=== PATIENT | female | born 1980 | race Caucasian/White ===

== ENCOUNTER 2017-04-17 08:20 | Emergency (ER) | payer MEDICAID ==
--- NOTE | 2017-04-17 08:40 | ED Physician Chart ---
Chief Complaint/HPI - Patient Information Date Seen:: 04/17/17 Time Seen:: 08:30 Chief Complaint:: Bilateral leg pain for almost 2 days. History of Present Illness:: Pt has had bilateral diffuse leg pain for almost 2 days. No known injury or trauma. No weakness or numbness. Pain is much worse in the RLE and is aggravated with excessive weight bearing activities. Pt does not have a car and apparently has been doing a lot of walking prior to onset of her leg pain. Pt has not had any analgesic today. Allergies:: Allergies Allergy/AdvReac Type Severity Reaction Status Date / Time No Known Allergies Allergy Verified 04/17/17 08:30 Vitals:: Vital Signs - 8 hr 04/17/17 08:31 Temp 97.6 F HR 77 RR 16 BP 103/58 O2 Sat % 100 Historian:: Patient Family MD/PCP:: unknown LMP:: 04/02/17 Review:: Nurse's Note Reviewed Review of Systems - Review of Systems General/Constitutional: No fever, No weight loss, No weakness Skin: No skin lesions, No rash, No bruising Head: No headache, No light-headedness Eyes: No loss of vision, No pain, No diplopia ENT: No earache, No nasal drainage, No sore throat, No tinnitus Cardio Vascular: No chest pain, No palpitations, No PND, No orthopnea, No edema Pulmonary: No SOB, No cough, No wheezing GI: No nausea, No vomiting, No diarrhea, No pain, No melena, No hematochezia, No constipation, No hematemesis G/U: No dysuria, No frequency, No hematuria Musculoskeletal: Other (R leg pain, see HPI.) Endocrine: No polyuria, No polydipsia Psychiatric: No prior psych history Hematopoietic: No bruising, No lymphadenopathy Allergic/Immuno: No urticaria, No angioedema Neurological: Syncope, No syncope, No focal symptoms, No weakness, No headache, No confusion Past Medical History - Past Medical History Past Medical History: Other (Chronic anemia) Family History: Diabetes Melitus (father) Social History: Smoker (Half a pack daily. Pt has been informed about health risks associated with chronic tobacco use and has been advised to quit. Pt has been encouraged to enroll in a smoking cessation program. Pt acknowledges understanding.), No Alcohol, No Drug Use, Single, Lives Alone, Employed Employment:: fundraising. Surgical History: other (L arm surgery at age 5.) Psychiatricy History: None Medication: Reviewed Family Medical History - Family Member Mother History Unknown: Yes Physical Exam - Physical Examination General/Constitutional: Awake, Well-developed, well-nourished, Alert, No distress, GCS 15, Non-toxic appearing, Ambulatory Other Gen/Cons comments:: Breathes comfortably, speaks clearly, and ambulates without difficulty. Head: Atraumatic Eyes: Lids, conjuctiva normal, PERRL, EOMI Skin: Nl inspection, No rash, No skin lesions, No ecchymosis, Well hydrated, No lymphadenopathy Neck: Nontender, Full ROM w/o pain, No nuchal rigidity, No mass, No stridor Respiratory: Nl effort/Exclusion, Clear to Auscultation, No Wheeze/Rhonchi/Rales Cardio Vascular: RRR, No murmur, gallop, rubs GI: No tenderness/rebounding/guarding, No organomegaly, Normal BS's, Nondistended, No mass/bruits Other GI comments:: Obese but soft. Other Extremities comments:: RLE: vague diffuse tenderness to palpation at R thigh and R lower leg. No erythema, swelling, ecchymosis or open wound. FROM of all joints. No detectable motor/sensory/vascular deficit. Good distal pulse. LLE is unremarkable. Neuro/Psych: Alert/oriented (oriented x 3), Normal gait, No focal deficits Misc: normal gait, Normal back, No paraspinal tenderness Labs/Radiology/EKG Results - Lab Results Results: Laboratory Tests 04/17/17 08:55 Urine Test NEGATIVE - Radiology Results Comments:: R femur X-ray: No definite acute bony abnormalities. Official report per Dr. Dhaval Fitzgerald, radiologist. R tibula/fibula X-ray: No acute focal bony abnormalities. Official report per Dr. Dhaval Fitzgerald, radiologist. ED Septic Shock - . Is Septic Shock (SBP<90, OR Lactate>4 mmol\L) present?: No - <6hrs of presentation: Vital Signs: Vital Signs - 8 hr 04/17/17 08:31 Temp 97.6 F HR 77 RR 16 BP 103/58 O2 Sat % 100 Reassessment (Disposition) - Reassessment Reassessment:: 1008 Pt is comfortable and stable. R femur and R tib/fib radiological reports as well as lab finding have been discussed with pt. Pt requests to leave now. Aftercare instructions have been given. Reassessment Condition:: Improved - Diagnosis Diagnosis:: Pain in lower extremities c/w muscle ache from excessive walking with residual pain primarily in RLE, stable. - Aftercare/Follow up Instructions Aftercare/Follow-Up Instructions:: Refer to Discharge Instructions Notes:: Avoid excessive wt bearing activities. Bedrest today. May use warm compress to affected area in both legs for 15 minutes q2h. May take Tylenol 500 mg tab one tab po q6h prn pain. F/U with Dr. Solorzano or PCP of pt's choice in 2-3 days for recheck. Return to ER immediately if condition worsens or if any further questions/problems. Medication Prescribed:: None - Patient Disposition Discharge/Transfer:: Home Time:: 10:15 Condition at Disposition:: Stable, Improved
--- NOTE | 2017-04-17 09:47 | Diagnostic Imaging Report ---
Right femur (2 views) HISTORY: Pain No acute bony abnormalities. No fractures. No definite abnormality seen about the right hip or right knee region. IMPRESSION: 1. No definite acute bony abnormalities
--- NOTE | 2017-04-17 09:47 | Diagnostic Imaging Report ---
Right tibia/fibula (2 views) HISTORY: Pain No acute bony abnormalities. No fractures. IMPRESSION: 1. No acute focal bony abnormalities
== END 2017-04-17 10:13 | disposition home or self-care (01) ==
LOC: ER 08:20
DX: M79.662 Pain in left lower leg (principal); M79.661 Pain in right lower leg; F17.210 Nicotine dependence, cigarettes, uncomplicated
CPT/HCPCS: 99285; 96372; 73552; 73590; 81025; J1885